=== PATIENT | male | born 1950 | race Caucasian/White ===

== ENCOUNTER 2016-12-08 10:25 | Emergency (ER) | payer MEDICARE, OTHER ==
[~2016-12-08] VITALS: Ht 175.3 cm; Wt 63.9 kg
[2016-12-08 10:28] VITALS: BP 195/100; PULSE 100; RESP 16; TEMP 98.3; O2SAT 90
[2016-12-08 11:09] LABS: AUTOMATED NEUTROPHIL # 4.5 TH/MM3 (1.8-7.7); BASOPHIL # 0.3 TH/MM3 (0-0.2); BASOPHIL % 4.7 % (0.0-2.0); EOSINOPHIL # 0.1 TH/MM3 (0-0.4); HEMATOCRIT 47.4 % (39.0-51.0); HEMO FLAGS DIFF FINAL; LYMPH % 21.7 % (9.0-44.0); LYMPHOCYTE # 1.5 TH/MM3 (1.0-4.8); MEAN CELL VOLUME 94.4 FL (80.0-100.0); MEAN CORPUSCULAR HEMOGLOBIN 31.8 PG (27.0-34.0); MEAN CORPUSCULAR HGB CONC 33.7 % (32.0-36.0); NEUT % 63.6 % (16.0-70.0); PLATELET COUNT 187 TH/MM3 (150-450); RED BLOOD COUNT 5.03 MIL/MM3 (4.50-5.90); RED CELL DISTRIBUTION WIDTH 12.6 % (11.6-17.2)
[2016-12-08 11:21] LABS: CHLORIDE 101 MEQ/L (98-107); POTASSIUM 4.2 MEQ/L (3.5-5.1); SODIUM (NA) 135 MEQ/L (136-145)
[2016-12-08 11:26] LABS: ANION GAP 8 MEQ/L (5-15); BICARBONATE 26.4 MEQ/L (21.0-32.0); BLOOD UREA NITROGEN 5 MG/DL (7-18)
[2016-12-08 11:29] LABS: ALT (GPT) 19 U/L (12-78); AST (GOT) 30 U/L (15-37); GLOMERULAR FILTRATION RATE 135 ML/MIN (>89)
[2016-12-08 11:30] LABS: TOTAL BILIRUBIN ADULT 0.7 MG/DL (0.2-1.0)
[2016-12-08 11:32] LABS: ALKALINE PHOSPHATASE 75 U/L (45-117); APTT (PATIENT) 21.7 SEC (24.3-30.1); PROTHROMBIN TIME - PATIENT 10.9 SEC (9.8-11.6)
--- NOTE | 2016-12-08 12:07 | PD ---
HPI Chief Complaint: Skin Problem Time Seen by Provider: 10:36 Travel History International Travel<30 days: No Contact w/Intl Traveler<30days: No Traveled to known affect area: No History of Present Illness HPI Patient is a 66 year old male who comes in complaining of redness of his right foot. He says he noticed the redness starting 4 days ago. He says it seems to be getting worse, darker in color. He says at first he thought it was just a sunburn as he has been in the sun several days in a row, but it does not seem to be improving. He says he has some pain to the area. He has not noticed any swelling or drainage from the area. He has not noticed any cuts or bites to the area. He says he does have some pain with wiggling his toes. He reports numbness to both feet, but this is chronic. He denies any injuries to the foot. PFSH Past Medical History Medical History: Denies Significant Hx Tetanus Vaccination: > 5 Years Past Surgical History Surgical History: No Previous Surgery Social History Alcohol Use: Yes (soc) Tobacco Use: Yes (1 ppd) Substance Use: No Allergies-Medications (Allergen,Severity, Reaction): Coded Allergies: No Known Allergies (Unverified , 12/08/16) Reported Meds & Prescriptions Reported Meds & Active Scripts Active Keflex (Cephalexin) 500 Mg Cap 500 Mg PO Q8H 7 Days Review of Systems Except as stated in HPI: all other systems reviewed are Neg General / Constitutional: No: Fever, Chills HENT: No: Headaches, Lightheadedness Cardiovascular: No: Chest Pain or Discomfort Respiratory: No: Shortness of Breath Gastrointestinal: No: Nausea, Vomiting Musculoskeletal: Positive: Pain Skin: Positive Change in Pigmentation Neurologic: No: Weakness, Dizziness Physical Exam Narrative GENERAL: Awake and alert, in no acute distress. SKIN: 5 cm area of erythema to the dorsum of the right foot. No swelling or area of fluctuance. There is a scab in the middle of the area of erythema. HEAD: Atraumatic. Normocephalic. EYES: Pupils equal and round. No scleral icterus. ENT: Mucous membranes pink and moist. NECK: Trachea midline. No JVD. CARDIOVASCULAR: Regular rate and rhythm. No murmur appreciated. RESPIRATORY: No accessory muscle use. Clear to auscultation. Breath sounds equal bilaterally. GASTROINTESTINAL: Abdomen soft, non-tender, nondistended. MUSCULOSKELETAL: No obvious deformities. No clubbing. No cyanosis. No edema. Pedal pulses intact and equal in both feet. No tenderness to palpation of the dorsum of the foot. NEUROLOGICAL: Awake and alert. No obvious cranial nerve deficits. Motor grossly within normal limits. Normal speech. PSYCHIATRIC: Appropriate mood and affect; insight and judgment normal. Data Data Last Documented VS Vital Signs Date Time Temp Pulse Resp B/P Pulse Ox O2 Delivery O2 Flow Rate FiO2 12/08/16 15:30 78 18 180/82 98 Room Air 12/08/16 10:28 98.3 Orders Complete Blood Count With Diff (12/08/16 10:39) Comprehensive Metabolic Panel (12/08/16 10:39) Act Partial Throm Time (Ptt) (12/08/16 10:39) Prothrombin Time / Inr (Pt) (12/08/16 10:39) Foot, Complete ([id number]) (12/08/16 ) Cta Runoff W Iv Contrast W 3d (12/08/16 ) Iohexol 350 Inj (Omnipaque 350 Inj) (12/08/16 12:46) Labs Laboratory Tests Test 12/08/16 10:29 White Blood Count 7.0 TH/MM3 Red Blood Count 5.03 MIL/MM3 Hemoglobin 16.0 GM/DL Hematocrit 47.4 % Mean Corpuscular Volume 94.4 FL Mean Corpuscular Hemoglobin 31.8 PG Mean Corpuscular Hemoglobin 33.7 % Concent Red Cell Distribution Width 12.6 % Platelet Count 187 TH/MM3 Mean Platelet Volume 9.5 FL Neutrophils (%) (Auto) 63.6 % Lymphocytes (%) (Auto) 21.7 % Monocytes (%) (Auto) 9.0 % Eosinophils (%) (Auto) 1.0 % Basophils (%) (Auto) 4.7 % Neutrophils # (Auto) 4.5 TH/MM3 Lymphocytes # (Auto) 1.5 TH/MM3 Monocytes # (Auto) 0.6 TH/MM3 Eosinophils # (Auto) 0.1 TH/MM3 Basophils # (Auto) 0.3 TH/MM3 CBC Comment DIFF FINAL Differential Comment Prothrombin Time 10.9 SEC Prothromb Time International 1.0 RATIO Ratio Activated Partial 21.7 SEC Thromboplast Time Sodium Level 135 MEQ/L Potassium Level 4.2 MEQ/L Chloride Level 101 MEQ/L Carbon Dioxide Level 26.4 MEQ/L Anion Gap 8 MEQ/L Blood Urea Nitrogen 5 MG/DL Creatinine 0.60 MG/DL Estimat Glomerular Filtration 135 ML/MIN Rate Random Glucose 104 MG/DL Calcium Level 8.9 MG/DL Total Bilirubin 0.7 MG/DL Aspartate Amino Transf 30 U/L (AST/SGOT) Alanine Aminotransferase 19 U/L (ALT/SGPT) Alkaline Phosphatase 75 U/L Total Protein 7.7 GM/DL Albumin 3.1 GM/DL MDM Medical Decision Making Medical Screen Exam Complete: Yes Emergency Medical Condition: Yes Differential Diagnosis Cellulitis versus abscess versus PAD versus PVD Narrative Course Patient is a 66-year-old male comes in complaining of pain and redness to his right foot. Exam shows area of erythema, no warmth to the touch. Pedal pulses are intact. IV established, labs sent. Labs show no acute abnormalities. X- ray of the foot performed shows no acute abnormalities. CTA with runoff performed shows occlusion of the right anterior tibial artery. I spoke with Dr. Roberts of vascular surgery who would like to see the patient in the office. Patient informed of this information, given the number for Dr. Roberts. Advised of warning signs and when to return to the emergency department. I do not believe this is cellulitis, but we'll try a short course of Keflex to see if this helps. Patient advised to return any time for any worsening symptoms. Patient advised to quit smoking. He and his son are comfortable with this plan at this time. Diagnosis Primary Impression: Peripheral artery disease Additional Impression: Cellulitis Qualified Code: L03.115 - Cellulitis of right lower extremity Patient Instructions: Cellulitis (ED), General Instructions, Peripheral Artery Disease (ED) Additional Instructions: The redness on your foot is due to poor circulation. You have been given a prescription for an antibiotic in case there is any infectious component. You need to follow up with Dr. Roberts, the vascular surgeon regarding the blockage of the artery in your leg. Dr. Roberts's office should call to make an appointment, but if you do not hear from them or need them for any reason, the phone number is [phone]. If you have any worsening symptoms, return to the ED. Scripts Cephalexin (Keflex)500 Mg [id number] Mg PO Q8H 7 Days Ref 0 Prov:Sylvia Parsons MD 12/08/16 Disposition: 01 DISCHARGE HOME Condition: Stable Sylvia Parsons MD December 08, 2016 12:07
--- NOTE | 2016-12-08 12:16 | RADHPO ---
EXAM DATE/TIME: 12/08/2016 10:45 [facility] COMPARISON: No previous studies available for comparison. INDICATIONS : Right foot redness and bruising with no known injury. MEDICAL HISTORY : None. SURGICAL HISTORY : None. ENCOUNTER: Initial ACUITY: 4 - 6 days PAIN SCORE: 2/10 LOCATION: Right anterior foot FINDINGS: Three view examination of the right foot demonstrates no soft tissue swelling, dislocation, or fractu re. The tarsal bones appear intact. There are mild osteoarthritic changes. The interphalangeal and metatarsophalangeal joints are intact. The calcaneus is intact. Bony mineralization is normal. CONCLUSION: 1. Mild osteoarthritic change. 2. No fracture or destructive change. Eddie Stringer MD on December 08, 2016 at 12:14 Board Certified Radiologist. This report was verified electronically.
[2016-12-08] MEDS ORDERED: IOHEXOL 350 MG/ML 10 ML VIAL (for RAD DIAG) IV ONE (12:46)
[2016-12-08 13:40] VITALS: BP 184/85; PULSE 70; RESP 18; O2SAT 99
--- NOTE | 2016-12-08 15:01 | RADHPO ---
EXAM DATE/TIME: 12/08/2016 11:37 [facility] COMPARISON: No previous studies available for comparison. INDICATIONS : Infected right foot. IV CONTRAST: 100 cc Omnipaque 350 (iohexol) IV RADIATION DOSE: 14.78 CTDIvol (mGy) MEDICAL HISTORY : None SURGICAL HISTORY : None. ENCOUNTER: Initial ACUITY: 4 - 6 days PAIN SCALE: 5/10 LOCATION: Right lower extremity TECHNIQUE: Volumetric scanning was performed using a multi-row detector CT scanner. The data was post processed with a variety of visualization algorithms including full volume maximum intensity projection, multi -planar sliding thin slab reformation, curved planar reformation, and surface rendering techniques. Using automated exposure control and adjustment of the mA and/or kV according to patient size, radiat ion dose was kept as low as reasonably achievable to obtain optimal diagnostic quality images. FINDINGS: The abdominal aorta is notable for patchy dense intimal calcification and mild atheromatous irregular ity. No significant aortic stenosis. There is very mild calcific stenosis of the origin of the right common iliac artery. No other iliac inflow disease of significance is identified. Looking at the aortic visceral vessels, the celiac, SMA and renal arteries are widely patent. The MICHEAL is patent. In the pelvis, the hypogastrics are patent bilaterally. The common femoral arteries are r elatively healthy appearance bilaterally. The profundas are patent bilaterally. The superficial femoral arteries and popliteal arteries are widely patent with mild occasional intima l calcification noted. In the right leg, the posterior tibial and peritoneal vessels are fairly healthy appearance and intac t to the foot. The right anterior tibial artery appears to be discontinuous with significant occlusiv e or near occlusive disease in the mid to distal calf. The dorsalis pedis is intact. In the contralateral left leg, satisfactory 3 vessel calf runoff is noted. CONCLUSION: No significant aortoiliac inflow stenosis. Distal runoff disease on the right, almost exclusively involving the anterior tibial artery. Brent Haines MD on December 08, 2016 at 14:51 Board Certified Radiologist. This report was verified electronically.
[2016-12-08 15:30] VITALS: BP 180/82; PULSE 78; RESP 18; O2SAT 98
[2016-12-08] MEDS ORDERED: CEPH-460 PO (15:30)
== END 2016-12-08 15:57 | disposition home or self-care (01) ==
LOC: PHED 10:25
DX: I73.9 Peripheral vascular disease, unspecified (principal); L03.115 Cellulitis of right lower limb; F17.210 Nicotine dependence, cigarettes, uncomplicated
CPT/HCPCS: 73630; 75635; 80053; 85025; 85610; 85730; 99285; Q9967